=== PATIENT | female | born 1990 | race Caucasian/White ===

== ENCOUNTER → 2016-10-18 | Outpatient (CLI) | payer BC ==
[2016-10-18 12:16] LABS: CH 29.5; CHCM 33.1; HDW 2.68; HGB 13.9 gm/dL (11.4-16.0); MCH 29.8 pg (25.0-35.0); MCHC 33.2 g/dL (31.0-37.0); MCV 89.7 fL (80.0-100.0); Mean Platelet Volume 6.9; RBC 4.68 m/uL (3.80-5.40); RDW 12.8 % (11.5-15.5); WBC 9.4 k/uL (3.8-10.6)
[2016-10-18 12:28] LABS: ALT 31 U/L (9-52); AST 18 U/L (14-36); Alkaline Phosphatase 70 U/L (38-126); Anion Gap 12 mmol/L; Blood Urea Nitrogen 9 mg/dL (7-17); Calcium 9.7 mg/dL (8.4-10.2); Carbon Dioxide 26 mmol/L (22-30); Chloride 104 mmol/L (98-107); Glucose 87 mg/dL (74-99); Non-African American GFR(MDRD) >60 (>60 ml/min/1.73 sqM); Sodium 142 mmol/L (137-145); Total Bilirubin 0.4 mg/dL (0.2-1.3); Total Protein 7.9 g/dL (6.3-8.2)
== END | disposition home or self-care (01) ==
LOC: LABWHC1 11:23
PROVIDERS: ATTEND Internal Medicine Endocrinology, Diabetes & Metabolism
DX: E05.90 Thyrotoxicosis, unspecified without thyrotoxic crisis or storm (principal)
CPT/HCPCS: 36415; 80053; 84439; 84443; 84445; 84480; 85027

== ENCOUNTER → 2016-10-21 | Outpatient (CLI) | payer BC ==
--- NOTE | 2016-10-21 10:22 | US ---
EXAMINATION TYPE: US thyroid st tissue head/neck DATE OF EXAM: 10/21/2016 COMPARISON: NONE CLINICAL HISTORY: E05.90 thyrotoxicosis. Hyperthyroidism GLAND SIZE: Right Lobe: 5.4 x 1.4 x 1.7 cm Overall Parenchyma: heterogenous Left Lobe: 5.4 x 1.4 x 1.5 cm Overall Parenchyma: heterogeneous Isthmus Thickness: 0.3 cm NODULES RIGHT: # of nodules measured on right: 0 LEFT: # of nodules measured on left: 0 ISTHMUS: # of nodules measured in the isthmus: 0 Bilateral neck scanned, multiple probable lymph nodes seen bilaterally with largest on right measurin g 3.1cm and largest on left measuring 3.5cm. These measure less than 1 cm in short axis and are withi n normal limits. Slightly enlarged heterogeneous thyroid without any clearly defined nodules seen at this time. 0.8cm hypoechoic area posterior to left lobe, possible parathyroid vs. lymph node. IMPRESSION: 1. Enlarged heterogenous thyroid with no discrete nodules. Findings correlate with the provided histo ry of hyperthyroidism. 2. 8mm hypoechoic area posterior to the left thyroid lobe which may represent parathyroid tissue/mert melba or lymph node. Correlation with nuclear medicine parathyroid scintigraphy could be performed.
--- NOTE | 2016-10-22 11:34 | NM ---
EXAMINATION TYPE: NM thyroid image w uptake DATE OF EXAM: 10/22/2016 COMPARISON: NONE HISTORY: Thyrotoxicosis TECHNIQUE: After the intravenous administration of 11 mCi Tc 99m Sodium Pertechnetate, thyroid imagin g is performed 5 minutes post injection. Thyroid iodine uptake is calculated after the oral administr ation of 15.83 uCi I-131 capsule. FINDINGS: There is normal distribution of activity throughout the gland. The 4 hour iodine uptake is calculated at 1.3% (normal range 8-14%). The 24-hour iodine uptake is calculated at 0.6% (normal ran ge 15-35%). No suspicious focal hot nodules or cold defects are evident. Uptake is diminished the thyroid gland i s compared to the salivary glands. IMPRESSION: 1. Nearly normal uptake thyroid uptake evaluation. 2. There is homogenous diffuse uptake on imaging.
== END | disposition home or self-care (01) ==
LOC: RADUSMAIN 09:26
PROVIDERS: ATTEND Internal Medicine Endocrinology, Diabetes & Metabolism
DX: E04.9 Nontoxic goiter, unspecified (principal); E21.5 Disorder of parathyroid gland, unspecified
CPT/HCPCS: 76536; 78014; A9528; A9512